=== PATIENT | male | born 1990 | race Caucasian/White ===

== ENCOUNTER 2023-03-15 11:52 | Outpatient (REF) | payer MEDICAID, SELFPAY ==
[2023-03-15 15:29] LABS: ALT 39 U/L (16-63); AST 24 U/L (15-37); Albumin 4.4 g/dL (3.4-5.0); Alkaline Phosphatase 80 U/L (46-116); Anion Gap 9.7 mmol/L (3-11); BUN 20 mg/dL (7-18); Bilirubin, Total 0.4 mg/dL (0.2-1.0); CO2 26.3 mmol/L (21.0-32.0); Calcium 9.3 mg/dL (8.5-10.1); Calculated LDL 121 mg/dL (<100); Chloride 102 mmol/L (98-107); Cholesterol 189 mg/dL (<200); Estimated GFR 103.84 (mL/min/1.73m2); Glucose 101 mg/dL (74-106); HDL Cholesterol 43 mg/dL (40-60); Potassium 4.9 mmol/L (3.5-5.1); Sodium 138 mmol/L (136-145); TSH (W/Ref FT4) 1.09 uIU/mL (0.36-3.74); Total Protein 8.3 g/dL (6.4-8.2); Triglyceride 126 mg/dL (<150)
[2023-03-16 10:48] LABS: Hepatitis C Ab w Rflx HCV PCR Negative (Negative)
[2023-03-16 11:13] LABS: HIV-1/2 Ag & Ab Screen Negative (Negative)
== END 2023-03-15 11:53 | disposition home or self-care (01) ==
LOC: NCHCN 11:52
PROVIDERS: PCP Nurse Practitioner Family; Visit Provider Nurse Practitioner Family
DX: R03.0 Elevated blood-pressure reading, without diagnosis of hypertension (principal); G43.109 Migraine with aura, not intractable, without status migrainosus; E66.8 Other obesity; Z11.4 Encounter for screening for human immunodeficiency virus [HIV]; Z11.59 Encounter for screening for other viral diseases; Z13.29 Encounter for screening for other suspected endocrine disorder
CPT/HCPCS: 80053; 80061; 86803; 87389; 84443